=== PATIENT | male | born 1955 | race Caucasian/White ===

== ENCOUNTER 2016-11-19 08:00 | Day surgery (SDC) | payer OTHER ==
[~2016-11-19] VITALS: Ht 172.7 cm; Wt 100.6 kg
[2016-11-19 08:33] VITALS: Ht 172.7 cm; Wt 100.6 kg
[2016-11-19] MEDS ORDERED: LIDOCAINE 2% (SDV) 5 ML INJ ONE (08:43)
[2016-11-19] MEDS ORDERED: MIDAZOLAM 1 MG/ML 2 ML INJ ONE (08:43)
[2016-11-19] MEDS ORDERED: PROPOFOL 20 ML ONE (08:43)
[2016-11-19 08:59] VITALS: BP 131/85; PULSE 58; RESP 18
[2016-11-19 10:00] VITALS: BP 127/78; PULSE 61; RESP 20
--- NOTE | 2016-11-19 14:04 | GILP ---
DATE OF PROCEDURE: NAME OF PROCEDURE: Colonoscopy. PREOPERATIVE DIAGNOSIS: Screening colonoscopy to rule out colon polyps. POSTOPERATIVE DIAGNOSES: 1. Isolated diverticulum noted in the descending colon. 2. Minimal internal and external hemorrhoids with no bleeding noted. DESCRIPTION OF PROCEDURE: After the informed written consent was obtained, the patient was asked to lie on the left lateral side. The patient was given intravenous anesthesia by anesthesiologist, Dr Raiza Magdaleno. When the patient became somnolent, the Olympus video colonoscope was introduced into the re ctum and scope was advanced all the way to the cecum. Appendiceal opening and ileocecal valve were identified which appeared normal. One isolated diverticulum noted in the descending colon. No blee ding noted. The rest of the colon appeared normal. On the way out, retroflexion was performed. Mi nimal internal hemorrhoids noted with no bleeding and minimal external hemorrhoids were noted with n o bleeding. Scope at this time was withdrawn, and the procedure was terminated. PLAN: Recommend repeat colonoscopy in 10 years. Dictated By: EBER KLEIN/ARI Conf#: [id number] DID#: [id number] CC: Aranza Carlos;*End*
--- NOTE | 2016-11-19 14:07 | GILP ---
DATE OF PROCEDURE: 11/19/2016 PROCEDURE: Esophagogastroduodenoscopy. SURGEON: Angel Sosa MD PREOPERATIVE DIAGNOSIS: The patient presenting with history of chronic abdominal pain, rule out pep tic ulcer disease, rule out esophagitis. POSTOPERATIVE DIAGNOSES: 1. Distal erosive esophagitis. 2. A few gastric erosions with gastritis noted. 3. Duodenum normal. DESCRIPTION OF PROCEDURE: After the informed written consent was obtained, the patient was asked to lie on the left lateral side. Intravenous anesthesia was given by anesthesiologist, Dr. Magdaleno. Whe n the patient became somnolent, the Olympus video upper endoscope was introduced into the oropharynx , then into the esophagus. Several linear erosions were noted just above the GE junction indicating grade II reflux esophagitis of [place] classification. Multiple biopsies were obtained to rule out Smyth's esophagus. Stomach was examined. A few erosions were noted in the antrum. Rest of the stomach appeared to be normal. Biopsy was done from the antrum, the lesser curvature and the fu ndus to rule out H. pylori infection. Duodenum appeared normal up to the end of the third portion. Scope at this time was withdrawn after examining the duodenum. No additional abnormalities detecte d and the procedure was terminated. PLAN: Recommend proton pump inhibitor therapy for 8 weeks. Wait for the pathology report. Dictated By: ANGEL KLEIN/ARI Conf#: [id number] DID#: [id number] CC: ANGEL SOSA MD; STEFANI OLIVARES;*EndCC*
== END 2016-11-19 10:13 | disposition home or self-care (01) ==
LOC: GIL 08:00
PROVIDERS: ATTEND Internal Medicine Gastroenterology
DX: Z12.11 Encounter for screening for malignant neoplasm of colon (principal); K29.50 Unspecified chronic gastritis without bleeding; K21.0 Gastro-esophageal reflux disease with esophagitis; K64.8 Other hemorrhoids; K64.4 Residual hemorrhoidal skin tags; E66.9 Obesity, unspecified; Z68.33 Body mass index [BMI] 33.0-33.9, adult
CPT/HCPCS: 43239; 45378; 88305; 88312; 88313; J2250; Z7610